=== PATIENT | female | born 1965 | race American Indian/Alaskan Native ===

== ENCOUNTER 2016-09-30 12:10 | Emergency (ER) | payer BC ==
[2016-09-30 13:07] LABS: Basophils % (Auto) 0.1 % (0.0-1.8); Eosinophils % (Auto) 0.7 % (0.0-4.3); Hematocrit 46.5 % (30.3-42.9); Hemoglobin 15.1 gm/dl (10.1-14.3); Mean Corpuscular HGB Conc 32 % (30-34); Mean Corpuscular Hemoglobin 29 pg (28-32); Mean Corpuscular Volume 89 fl (79-97); Platelet Count 213 K/mm3 (140-440); White Blood Count 8.5 K/mm3 (4.5-11.0)
[2016-09-30 13:19] LABS: Blood Urea Nitrogen 14 mg/dL (7-17); Calcium 9.4 mg/dL (8.4-10.2); Carbon Dioxide 20 mmol/L (22-30); Chloride 99.7 mmol/L (98-107); Glucose 139 mg/dL (65-100); Sodium 136 mmol/L (137-145)
[2016-09-30 14:31] LABS: Anion Gap 22 mmol/L; Potassium 5.3 mmol/L (3.6-5.0)
[2016-09-30] MEDS ORDERED: BENTYL PO ONE (16:15)
[2016-09-30 16:31] LABS: Bacteria,Urine 1+ /HPF (Negative); Bilirubin,Urine NEG (Negative); Blood,Urine SM (Negative); Ketones,Urine NEG (Negative); Leukocyte Esterase,Urine NEG (Negative); Nitrite,Urine NEG (Negative); Protein,Urine <15 mg/dL mg/dL (Negative); RBC,Urine < 1.0 /HPF (0.0-6.0); Urobilinogen,Urine < 2.0 mg/dL (<2.0); WBC,Urine < 1.0 /HPF (0.0-6.0)
[2016-09-30 17:05] LABS: Alanine Aminotransferase 16 units/L (7-56); Albumin 4.3 g/dL (3.9-5); Albumin/Globulin Ratio 1.1 %; Alkaline Phosphatase 100 units/L (35-129); Lipase 15 units/L (13-60); Total Protein 8.2 g/dL (6.3-8.2)
[2016-09-30 17:14] LABS: Bilirubin,Direct < 0.2 mg/dL (0-0.2); Bilirubin,Indirect 0.1 mg/dL
--- NOTE | 2016-09-30 18:05 | Emergency Department Report ---
ED N/V/D HPI - General Chief complaint: Nausea/Vomiting/Diarrhea Stated complaint: ANXIETY/NAUSEA Time Seen by Provider: 09/30/16 15:28 Source: patient Mode of arrival: Ambulatory Limitations: No Limitations - History of Present Illness Initial comments: Patient is a 51-year-old female who presents emergency Department with complaint of dysuria frequency and abdominal fullness. This started earlier today. She has some mild complaints of nausea. Her pain is described as achy and crampy. It is like she has a potential GI bug. - Related Data Previous Rx's Medication Instructions Recorded Last Taken Type Ciprofloxacin HCl [Ciprofloxacin 500 mg PO Q12HR #6 tab 09/30/16 Unknown Rx TAB] Allergies Allergy/AdvReac Type Severity Reaction Status Date / Time No Known Allergies Allergy Unverified 09/30/16 12:34 ED Review of Systems ROS: Stated complaint: ANXIETY/NAUSEA Other details as noted in HPI ED Past Medical Hx - Past Medical History Hx Hypertension: Yes - Surgical History Additional Surgical History: C SECTION HERNIA/ HYSTO - Social History Smoking Status: Never Smoker Substance Use Type: None - Medications Home Medications: Home Medications Medication Instructions Recorded Confirmed Last Taken Type Ciprofloxacin HCl [Ciprofloxacin 500 mg PO Q12HR #6 tab 09/30/16 Unknown Rx TAB] ED Physical Exam - General Limitations: No Limitations ED Course Vital Signs 09/30/16 09/30/16 09/30/16 12:30 12:35 15:51 Temperature 97.1 F L Pulse Rate 99 H 114 H Respiratory 18 18 Rate Blood Pressure 225/131 193/115 Blood Pressure 190/123 [Left] O2 Sat by Pulse 99 100 Oximetry 09/30/16 16:00 Temperature Pulse Rate Respiratory Rate Blood Pressure 205/115 Blood Pressure [Left] O2 Sat by Pulse 99 Oximetry ED Medical Decision Making - Lab Data Result diagrams: 09/30/16 12:43 09/30/16 12:43 - Medical Decision Making Patient is a 51-year-old female presenting in the emergency department with complaint of abdominal pain nausea or dysuria. Symptoms started earlier today. Clinically normal exam. Labs show bacteria on UA. Given her symptoms plan to cover with oral antibiotics. She improved with the Bentyl and do not see a need for further workup at this point. Likely UTI. Critical care attestation.: If time is entered above; I have spent that time in minutes in the direct care of this critically ill patient, excluding procedure time. ED Disposition Clinical Impression: UTI (urinary tract infection) Disposition: - TO HOME OR SELFCARE Is pt being admited?: No Does the pt Need Aspirin: No Condition: Stable Instructions: Urinary Tract Infection in Women (ED) Prescriptions: Ciprofloxacin HCl [Ciprofloxacin TAB] 500 mg PO Q12HR #6 tab Referrals: PRIMARY CARE, [Referring] - 3-5 Days Time of Disposition: 18:30
[2016-09-30 19:08] VITALS: BP 164/94
== END 2016-09-30 20:30 | disposition home or self-care (01) ==
LOC: ED 12:10
DX: N39.0 Urinary tract infection, site not specified (principal); I10 Essential (primary) hypertension
CPT/HCPCS: 36415; 80048; 80074; 81001; 83690; 84484; 85025